=== PATIENT | male | born 1955 | race Caucasian/White ===

== ENCOUNTER 2018-04-14 08:24 | Day surgery (SDC) | payer MEDICARE ==
[~2018-04-14] VITALS: Ht 182.9 cm; Wt 65.9 kg
--- NOTE | ~2018-04-14 | OP ---
PATIENT NAME: JOHNNIE ROUSE MEDICAL RECORD: [id number] :57 LOCATION:D.OPS ADMISSION DATE: SURGEON: TREVOR BEYER DO DATE OF OPERATION: 04/14/2018 PROCEDURE: Colonoscopy with polypectomy. INDICATIONS FOR PROCEDURE: Screening for colorectal cancer. SCOPE: Olympus video pediatric colonoscope. MEDICATIONS: Propofol 400 mg IV per anesthesia. WITHDRAWAL TIME: 23 minutes. ESTIMATED BLOOD LOSS: Minimal. COMPLICATIONS: None. FINDINGS: Informed consent was given. The patient was made comfortable with the above medication. After reaching an adequate level of sedation by slow IV push, the patient was placed in the left side. A digital rectal examination was performed and was normal. The endoscope was advanced under direct visualization through the rectum to the cecum and terminal ileum. The endoscope was slowly withdrawn and mucosa was carefully examined. There were 3 polyps visualized on today's examination. The first was a benign-appearing sessile polyp, which measured approximately 2 mm in the transverse colon. It was removed using a hot forceps in 1 piece and completely retrieved. There were 2 polyps located in the descending colon. The first was a benign-appearing sessile polyp, which measured approximately 2 mm in diameter. It was removed using hot forceps in 1 piece and completely retrieved. The other polyp was a flat polyp measuring approximately 7-8 mm in diameter. It was lifted using normal saline and snared in 1 piece using endoscopic mucosal resection technique. The surrounding edges of the polyp site were cauterized. Retroflexion was performed in the rectum with visualization of grade I internal hemorrhoids without bleeding. There were no other abnormalities or diverticula visualized on today's examination. The endoscope was withdrawn from the patient. The patient tolerated the procedure well. There were no complications. IMPRESSION: 1. Three polyps as described above removed using a combination of endoscopic mucosal resection technique and hot forceps. 2. Grade I internal hemorrhoids without bleeding. PLAN AND RECOMMENDATIONS: 1. Discharge home when recovery parameters are met. 2. Follow up biopsy specimen results. 3. High-fiber diet. 4. Continue current medications. 5. Recall colonoscopy in 2-3 years for continued surveillance based on a personal history of colorectal polyps. TRANSINT:[id number] Voice Confirmation ID: [id number] DOCUMENT ID: [id number] OPERATIVE REPORT [id number] JOHNNIE ROUSE TREVOR BEYER DO at 0800 CC: [id number] DICTATION DATE: 04/14/18 1031 LINEN WORKER: 04/14/18 1205 [facility] 04/14/18 [id number] [place] [address]
[2018-04-14] MEDS ORDERED: NEURONTIN 300300 MG PO (09:02)
[2018-04-14] MEDS ORDERED: NORCO 10-325 TA1 TAB PO (09:02)
[2018-04-14] MEDS ORDERED: XANAX0.5 MG PO (09:03)
[2018-04-14] MEDS ORDERED: ANORO ELLIPTA1 EACH INH (09:03)
[2018-04-14 09:11] VITALS: BP 129/87; Ht 182.9 cm; Wt 65.9 kg
== END 2018-04-14 11:30 | disposition home or self-care (01) ==
LOC: D.OPS 08:24
DX: Z12.11 Encounter for screening for malignant neoplasm of colon (principal); D12.4 Benign neoplasm of descending colon; D12.3 Benign neoplasm of transverse colon; K64.0 First degree hemorrhoids; Z01.812 Encounter for preprocedural laboratory examination

== ENCOUNTER 2019-03-31 06:08 | Day surgery (SDC) | payer MEDICARE ==
[~2019-03-31] VITALS: Ht 182.9 cm; Wt 65.8 kg
[~2019-03-31 06:08] MED LIST: ANORO ELLIPTA1 EACH INH; LISINOPRIL10 MG PO; NEURONTIN 300300 MG PO; NORCO 10-325 TA1 TAB PO; VENTOLIN INHALER; XANAX0.5 MG PO
[2019-03-31 06:40] LABS: BASOPHILS 1.6 % (0-2); EOSINOPHILS 8.6 % (0-7); HEMATOCRIT 46.4 % (42.0-54.0); HEMOGLOBIN 15.7 g/dL (13.5-17.5); IMMATURE GRANULOCYTES 0.2 % (0-5); LYMPHOCYTES 24.1 % (15-50); MCH 34.5 pg (26.0-34.0); MCHC 33.8 g/dL (31.0-37.0); MEAN PLATELET VOLUME 9.3 fL (7.4-10.4); MONOCYTES 13.6 % (2-11); NEUTROPHILS 51.9 % (40-80); PLATELET COUNT 308 10x3/uL (130-400); RBC 4.55 10x6/uL (4.20-6.10); RDW 13.1 % (11.5-14.5); WBC 8.8 10x3/uL (4.8-10.8)
[2019-03-31 07:25] LABS: CALC OSMOLALITY 278 mosm/kg (275-300); CALCIUM 8.8 mg/dL (8.5-10.1); CARBON DIOXIDE 28.3 mmol/L (21.0-32.0); CHLORIDE - SERUM 106 mmol/L (98-107); CREATININE - SERUM 0.9 mg/dL (0.6-1.3); GLUCOSE 93 mg/dL (74-106); POTASSIUM - SERUM 4.5 mmol/L (3.5-5.1); SODIUM 141 mmol/L (136-145); UREA NITROGEN 7 mg/dL (7-18); eGFR NON AFRICAN AMERICAN > 90 mL/min (90-120)
[2019-03-31] MEDS ORDERED: IPRAT-ALBUT 0.5-3 ML UPD (07:53)
[2019-03-31 07:54] VITALS: BP 142/80; Ht 182.9 cm; Wt 65.8 kg
--- NOTE | 2019-03-31 10:02 | NUR ---
[facility]UM PROLENE LOT [id number] EXP 11/08/2023
[2019-03-31] MEDS ORDERED: ROXICODONE15 MG PO (10:29)
--- NOTE | 2019-03-31 11:36 | NUR ---
1120-RECD FROM PACU. ALERT. IV PATENT. R INGUINAL DRESSING WITH 2 VERY SMALL AREAS MARKED. O2 ON AT 2L PER NC. TAKING ICE CHIPS WITHOUT NAUSEA.
--- NOTE | 2019-03-31 12:40 | NUR ---
PATIENT AMBULATES TO BATHROOM AND VOIDS LARGE AMOUNT IN TOILET WITHOUT DIFFICULTY, PIV DC'D WITH TIP INTACT. PATIENT DRESSING IN PERSONAL CLOTHING
--- NOTE | 2019-04-12 13:37 | OP ---
PATIENT NAME: JOHNNIE ROUSE MEDICAL RECORD: [id number] :57 LOCATION:D.OPS ADMISSION DATE: SURGEON: WYATT VALENCIA MD DATE OF OPERATION: 03/31/2019 PREOPERATIVE DIAGNOSES: 1. Recurrent right inguinal hernia. 2. Chronic obstructive pulmonary disease. 3. Hypertension. 4. Hematochezia. POSTOPERATIVE DIAGNOSES: 1. Recurrent right inguinal hernia. 2. Chronic obstructive pulmonary disease. 3. Hypertension. 4. Hematochezia. PROCEDURE: 1. Right inguinal hernia repair with medium PHS mesh. 2. Anal exam under anesthesia with right anterior hemorrhoid banding. SURGEON: Wyatt Valencia MD REPORT OF PROCEDURE: The patient's right groin was prepped and draped in sterile fashion. The previous incision was reopened and electrocautery was used to dissect through the subcutaneous tissue to the external oblique fascia. There was some scar tissue present. We worked through the scar tissue and opened up the external oblique fascia to the external ring. We were able to elevate the patient's spermatic cord and a [place] was placed around it. The structure that appeared to be the ilioinguinal nerve was then high ligated. The patient did have an indirect hernia defect, which appeared to be fat-containing. We were able to free this up from the spermatic cord and push this back into the peritoneal cavity. The preperitoneal space of Retzius was opened up in all directions and a medium PHS mesh was inserted. This was sutured down on all 4 sides using multiple interrupted 0 Vicryls. We irrigated out the wound with normal saline and then reapproximated the external oblique fascia with running 2-0 Vicryls. Pat's was closed with interrupted 3-0 Vicryls and the skin was closed with running subcutaneous 5-0 Monocryl. A 10 mL of 0.25% Marcaine with epinephrine was infused into the surrounding tissues and the wound was dressed appropriately. We then placed the patient in lithotomy position. The Hill-Davison anoscope was inserted and 360 degree inspection was performed. The patient had a friable right anterior internal hemorrhoid. I did not see any other evidence of any significant hemorrhoidal tissue. A band was placed at the base of this right anterior hemorrhoid and there was no sign of any active bleeding. COMPLICATIONS: None. CONDITION: Stable. ANESTHESIA: General endotracheal and local. BLOOD LOSS: Minimal. TRANSINT:[id number] Voice Confirmation ID: [id number] DOCUMENT ID: [id number] OPERATIVE REPORT [id number] JOHNNIE ROUSE CHRISTIAN MD at 1337 CC: ANJELICA REDDY MD [id number] DICTATION DATE: 03/31/19 1033 KITCHEN BATH DESIGNER: 03/31/19 1050 [facility] [place] 03/31/[address] [id number]
== END 2019-03-31 13:05 | disposition home or self-care (01) ==
LOC: D.OPS 06:08
PROVIDERS: ATTEND Surgery
DX: K40.91 Unilateral inguinal hernia, without obstruction or gangrene, recurrent (principal); J44.9 Chronic obstructive pulmonary disease, unspecified; I10 Essential (primary) hypertension; K92.1 Melena; Z72.0 Tobacco use